=== PATIENT | female | born 1985 | race Caucasian/White ===

== ENCOUNTER 2018-11-09 00:32 | Emergency (ER) | payer MEDICARE, MEDICAID ==
[2018-11-09] MEDS ORDERED: Aspirin Chewable 81 MG TAB ONE (00:57)
[2018-11-09] MEDS ORDERED: Ondansetron ODT 4 MG TAB ONE (01:02)
[2018-11-09 01:10] LABS: #Basophils 0.1 thou/uL (0.0-0.2); #Eosinphils 0.8 thou/uL (0.0-0.7); #Lymphocytes 1.9 thou/uL (1.20-3.40); #Neutrophils 11.9 thou/uL (1.40-6.50); %Basophils 0.6 % (0.0-1.0); %Eosinophils 4.9 % (0.0-10.0); %Lymphocytes 12.2 % (21.0-51.0); %Monocytes 6.2 % (0.0-10.0); %Neutrophils 76.2 % (42.0-75.0); Hemoglobin 10.6 g/dL (12.0-16.0); Mean Corpuscular HGB CONC 31.5 g/dL (32.0-36.0); Mean Corpuscular Hemoglobin 31.4 pg (27.0-31.0); Mean Corpuscular Volume 99.9 fL (78.0-98.0); Mean Platelet Volume 7.4 fL (7.4-10.4); Platelet Count 232 thou/uL (130-400); RBC Distribution Width 13.7 % (11.5-14.5); Red Blood Cell (RBC) Count 3.38 mill/uL (4.20-5.40); White Blood Cell (WBC) Count 15.7 thou/uL (4.8-10.8)
[2018-11-09 01:40] LABS: ALT (SGPT) 16 U/L (8-55); AST (SGOT) 20 U/L (5-34); Albumin 4.4 g/dL (3.5-5.0); Alkaline Phosphatase 64 U/L (40-150); Anion Gap 22 mmol/L (10-20); BUN (Urea Nitrogen) 56 mg/dL (7.0-18.7); Bilirubin, Total 0.6 mg/dL (0.2-1.2); CK (CPK) 45 U/L (29-168); Calc. Creatinine Clearance 0 mL/min (70-130); Calcium 10.4 mg/dL (7.8-10.44); Carbon Dioxide 26 mmol/L (22-29); Chloride 96 mmol/L (98-107); Estimated GFR-MDRD 4; Globulin 2.8 g/dL (2.4-3.5); Glucose 88 mg/dL (70-105); Lipase 37 U/L (8-78); Potassium 5.1 mmol/L (3.5-5.1); Protein, Total 7.2 g/dL (6.0-8.3); Sodium 139 mmol/L (136-145)
--- NOTE | 2018-11-09 07:46 | RAD ---
CHEST 1 VIEW: Date: 11/09/18 HISTORY: Dyspnea. Chest pain. COMPARISON: 12/09/17. FINDINGS: Cardiac silhouette is magnified by projection. Pulmonary vasculature is more engorged with widespread reticulonodular interstitial prominence and bilateral perihilar infiltrates. Mediastinum is midline allowing for slight rightward rotation of the patient. Right-sided venous stents remain in place. No evidence of pneumothorax. IMPRESSION: Cardiomegaly with pulmonary vascular congestion. POS: CET
== END 2018-11-09 02:45 | disposition home or self-care (01) ==
LOC: NAV ERS 00:32
DX: I12.0 Hypertensive chronic kidney disease with stage 5 chronic kidney disease or end stage renal disease (principal); N18.6 End stage renal disease; F31.9 Bipolar disorder, unspecified; Z79.1 Long term (current) use of non-steroidal anti-inflammatories (NSAID); Z79.899 Other long term (current) drug therapy
CPT/HCPCS: 36415; 71045; 80053; 82550; 83690; 84484; 85025; 93005; Q0162